=== PATIENT | male | born 1945 | race Caucasian/White ===

== ENCOUNTER 2025-05-03 14:22 | Outpatient (OUT) | payer OTHER, SELFPAY ==
--- NOTE | 2025-05-03 14:30 | XR_ITS ---
The [address] [address] Patient Name: MARCIN SCOTT MRN: [id number] date: 1945 Sex: M Assigned Patient [facility] Current Patient Location: [facility] Accession/Order Number: [id number] Exam Date: 05/03/2025 15:15 Report Date: 05/03/2025 18:21 At the request of: ROSA HAWKINS MD Procedure: XR chest 2V PA AND LATERAL CHEST: CLINICAL HISTORY: Preop exam COMPARISON: None FINDINGS: Mildly enlarged cardiomediastinal silhouette with aortic valve calcification. Retrocardiac opacity possibly within left lower lobe noted possible atelectasis and or scarring.. No effusion or pneumothorax. XR/XR chest 2V IMPRESSION: NO ACUTE CARDIOPULMONARY ABNORMALITY. CARDIOMEGALY. SUSPECT RETROCARDIAC OPACITY, POSSIBLY RELATED TO LEFT LOWER LOBE AIRSPACE DISEASE. CLINICAL CORRELATION WITH SYMPTOMATOLOGY RECOMMENDED. CORRELATION WITH ANY PRIOR IMAGING MAY BENEFICIAL. Impression dictated by: Sea Doherty M.D. 05/03/2025 6:21 PM Dictation Location: [place] [address] Electronically authenticated by: [id number] Y Date: 05/03/2025 18:21
--- NOTE | 2025-05-03 14:30 | ECG_ITS ---
The [facility] Test Date: 2025-05-03 Pat Name: MARCIN SCOTT Department: Room: - Gender: Male Fiber Optic Splicer: : 1945 Requested By: Order Number: [id number] Reading MD: BETZY RICHEY M.D. Measurements Intervals [place] Rate: 65 P: 51 KS: 175 QRS: 24 QRSD: 107 T: 75 QT: 393 QTc: 411 Interpretive Statements SINUS RHYTHM Nonspecific ST-T wave changes Abnormal ECG Compared to ECG 01/24/2021 21:04:[address]-T wave changes are now present Electronically Signed On 05-03-2025 18:06:36 EDT by BETZY RICHEY M.D.
--- OUTSIDE RECORDS SUMMARY | 2025-05-03 15:01 | XMS_ITS | Clinical Summary ---
Author Organization [facility] Address [address] [place] [address] Care Team Providers Care Floor Renovator Name Role Phone Unavailable Primary Care Provider Unavailabl e Social History Tobacco UseTypesPacks/DayYears UsedDateSmoking Tobacco: Never AssessedSex and Gender InformationValueDate RecordedSex Assigned at BirthNot on fileLegal Sex Male09/19/2022 6:51 PM EDTGender IdentityNot on fileSexual OrientationNot on file Last Filed Vital Signs Vital SignReadingTime TakenCommentsBlood Pressure--Pulse--Temperature-- Respiratory Rate--Oxygen Saturation--Inhaled Oxygen Concentration--Oyddaa42.1 kg (159 lb)06/23/2021 12:00 PM UEJMlbfcv098.2 cm (5' 7 )06/23/2021 12:00 PM ESTBody Mass Index24.9108/24/2020 12:00 PM EST Plan of Treatment Not on file
--- OUTSIDE RECORDS SUMMARY | 2025-05-03 15:01 | XMS_ITS | Clinical Summary ---
Author Organization [employer] [facility] Address [facility] [address] [place] [address] Care Team Providers Care Plaster Foreman Name Role Phone Unavailable Primary Care Provider Unavailabl e Social History Tobacco UseTypesPacks/DayYears UsedDateSmoking Tobacco: Never AssessedSex and Gender InformationValueDate RecordedSex Assigned at BirthNot on fileLegal Sex Male11/16/2021 8:46 AM EDTGender IdentityNot on fileSexual OrientationNot on file Plan of Treatment Health MaintenanceDue DateLast DoneCommentsDepression Frquabhhq35/05/1957Tobacco Jwbdihdgw43/05/1957DTaP,Tdap and Td Vaccines (1 - Tdap)12/11/1963Zoster (Shingles) Vaccine (1 of 2)1994Fall Risk Mobytqmgv68/05/2010Influenza Xhnseqm2803/08/2025 Medical Devices Not on file Insurance
--- OUTSIDE RECORDS SUMMARY | 2025-05-03 15:01 | XMS_ITS | Clinical Summary ---
Author Organization [facility] Address [address] [place] [address] Care Team Providers Care Trial Paralegal Name Role Phone Oliva Sotomayor DO Primary Care Provider [phone] Allergies No known active allergies Medications MedicationSigDispense QuantityRefillsLast FilledStart DateEnd DateStatus acetaminophen (TYLENOL) 325 mg tablet Take 650 mg by mouth every 6 hours as needed.Active bismuth subsalicylate (PEPTO-BISMOL ORAL) Take by mouth.Active aspirin/sod bicarb/citric acid (EDWIN-SELTZER ORAL) Take by mouth.Active Active Problems No known active problems Social History Tobacco UseTypesPacks/DayYears UsedDateSmoking Tobacco: Some DaysSmokeless Tobacco: Never Tobacco Cessation:Ready to Q uit: No Alcohol UseStandard Drinks/WeekCommentsNot Currently0 (1 standard drink = 0.6 oz pure alcohol)Area Deprivation IndexAnswerDate RecordedNational Score (1-100), lower number is lower ryqf396808/06/2022State Score (1-10), lower number is lower riskNot on file3Data from: https://www.neighborhoodatlas.medicine.[facility].edu/. Last address used for [address] Spaine08/06/2023Sex and Gender InformationValueDate RecordedSex Assigned at BirthNot on fileLegal KhrUznc7803/08/2020 8:22 AM EDT Gender IdentityNot on fileSexual OrientationNot on file Last Filed Vital Signs Vital SignReadingTime TakenCommentsBlood Ddvhhnqu092/8710 11:30 AM EDT Lhnmk9663/02/2020 11:00 AM YRRUxyjqcpnrnu31.4 ??C (97.5 ??F)04/14/2020 10:54 AM EDTRespiratory Kypu5600 11:00 AM EDTOxygen Cebskdwrpn35%04/14/2020 11:30 AM EDTInhaled Oxygen Concentration--Dteckj20.2 kg (168 lb)03/23/2020 11:43 AM REVWqomea338.2 cm (5' 7 )03/23/2020 11:43 AM EDTBody Mass Index26.31003/23/2020 11:43 AM EDT Plan of Treatment Health MaintenanceDue DateLast DoneCommentsAnxiety Qwcfktauf92/05/1963Depression Ulcwfiwah49/05/1963DTaP,Tdap,Td Vaccine (1 - Tdap)12/11/1963Diabetes Screening 1989Pneumococcal Vaccine: 50+ (1 of 1 - PCV)1994Shingrix Vaccine (1 of 2)1994RSV Vaccine (1 - 1-dose 75+ series)12/11/2019Advance Directive Tayjgjieuw56/01/2025ovid-19 Vaccine (1 - 2024- season)2025Influenza Vaccine (#1)2025 Medical Devices ImplantedTypeAreaManufacturerDevice IdentifierShelf Expiration DateModel / Serial / LotDextile Right Anatomical Mesh Large 10cm X 15cm Implanted:Qty[facility]: InguinalMEDTRONIC [id number] / / [id number] [address] Care Teams Team MemberRelationshipSpecialtyStart DateEnd Date Oliva Sotomayor DO [address] [place] [address] PCP - GeneralFamily Medicine04/01/20
--- NOTE | 2025-05-03 15:11 | PM.PRESUREVA ---
History of Present Illness History of Present Illness Chief complaint: prostate Cancer Narrative: Patient presents for presurgical testing accompanied by his spouse. Please see HPI from Dr. Chang's office dated April 19, 2025. Review of Systems ROS Narrative Please see ROS from Dr. Chang office dated April 19, 2025. 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) Depression ?F32.A - Depression, unspecified (ICD-10) Tinnitus ?H93.19 - Tinnitus, unspecified ear (ICD-10) Carotid artery stenosis without cerebral infarction ?I65.29 - Occlusion and stenosis of unspecified carotid artery (ICD-10) Degenerative lumbar spinal stenosis ?M48.061 - Spinal stenosis, lumbar region without neurogenic claudication (ICD-10) Hearing loss ?H91.90 - Unspecified hearing loss, unspecified ear (ICD-10) 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20 - Elevated prostate specific antigen [PSA] (ICD-10) Prostate cancer ?C61 - Malignant neoplasm of prostate (ICD-10) Surgical History (Updated 05/03/25 @ 14:49 by Zora Fritz NP) History of tonsillectomy ?Z90.89 - Acquired absence of other organs (ICD-10) History of hernia repair ?Z98.890 - Other specified postprocedural states (ICD-10) ?Z87.19 - Personal history of other diseases of the digestive system (ICD-10) History of hernia repair ?Z98.890 - Other specified postprocedural states (ICD-10) ?Z87.19 - Personal history of other diseases of the digestive system (ICD-10) History of lumbosacral spine surgery ?Z98.890 - Other specified postprocedural states (ICD-10) S/P AAA repair ?Z98.890 - Other specified postprocedural states (ICD-10) ?Z86.79 - Personal history of other diseases of the circulatory system (ICD-10) Family History (Updated 05/03/25 @ 14:49 by Zora Fritz NP) Other Agent orange exposure Family history of diabetes mellitus Family history of stroke Social History (Updated 05/03/25 @ 14:43 by Zora Fritz NP) Within the past year, how often did you have a drink containing alcohol: never Score interpretation: A score less than 4 is consistent with normal alcohol consumption. Smoking status: Current every day smoker What tobacco products do you use: cigarettes Cigarettes per day: 5 Years smoked: 20 Smoking pack-years: 5.00 Do you use any of these nicotine containing products: vaping products Non-prescribed substance use: cannabis (any form) Highest level of school completed/degree received: high school graduate Meds Home Medications and Allergies Home Medications ?Medication ?Instructions ?Recorded ?Confirmed ?Type atorvastatin 40 mg tablet 40 mg PO DAILY 05/03/25 05/03/25 History levothyroxine 75 mcg capsule 75 mcg PO DAILY 05/03/25 05/03/25 History lisinopril 5 mg tablet 5 mg PO DAILY 05/03/25 05/03/25 History multivitamin (Daily Multi-Vitamin 1 tab PO DAILY 05/03/25 05/03/25 History tablet) omeprazole 20 mg capsule,delayed 20 mg PO DAILY 05/03/25 05/03/25 History release Allergies Allergy/AdvReac Type Severity Reaction Status Date / Time No Known Drug Allergies Allergy Verified 05/03/25 14:34 Exam Narrative Exam Narrative: Constitutional: Awake, alert, comfortable, well-appearing, nontoxic, interactive, vital signs as charted Head: Normocephalic, atraumatic Neck: Supple, normal appearance, normal range of motion, no meningeal signs, no lymphadenopathy Respiratory: No respiratory distress, breath sounds clear Cardiovascular: Regular rate and rhythm, strong and regular heart tones Abdomen: Nontender, normal bowel sounds, soft, no CVA tenderness Musculoskeletal: Normal gait, no swelling or edema Skin: No rashes or induration, no lesions, only visible skin inspected Neuro: No neurological deficits, normal sensation Psychiatric: Oriented ?3, normal affect Assessment and Plan Assessment and Plan (1) Prostate cancer: (2) Elevated PSA: Plan TRUS/prostate biopsy scheduled with Dr. Chang May 13, 2025.
[2025-05-03 15:20] LABS: Hematocrit 44.8 % (42.0-54.0); Hemoglobin 15.2 g/dL (14.0-18.0); Immature Granulocytes Abs Auto 0.01 10^3/uL (0.00-0.03); Immature Granulocytes Pct Auto 0.1 % (0.0-0.5); Lymphocytes Absolute Auto 2.0 10^3/uL (1.2-3.8); Mean Corpuscular HGB Conc 33.9 g/dL (29.9-35.2); Mean Corpuscular Hemoglobin 32.3 pg (25.9-34.0); Mean Corpuscular Volume 95.3 fL (80.0-94.0); Platelet Count 189 10^3/uL (150-450); Red Blood Count 4.70 10^6/uL (4.70-6.10); White Blood Count 7.4 10^3/uL (4.0-11.0)
[2025-05-03 15:28] LABS: Anion Gap 12.2; Blood Urea Nitrogen 20.0 mg/dL (7.0-18.0); Calcium 8.8 mg/dL (8.5-10.1); Carbon Dioxide 27.2 mmol/L (21.0-32.0); Chloride 102 mmol/L (98-107); Estimated GFR (African America >60 (>=60 mL/min/1.73m^2); Estimated GFR (Non-African Ame >60 (>=60 mL/min/1.73m^2); Glucose 107 mg/dL (74-106); Potassium 4.4 mmol/L (3.5-5.1); Sodium 137 mmol/L (136-145)
[2025-05-03 15:39] LABS: Partial Thromboplastin Time 26.7 sec (22.3-36.2)
[2025-05-03 15:47] LABS: INR 1.02; Prothrombin Time 10.8 sec (9.0-11.6)
== END 2025-05-03 14:23 | disposition home or self-care (01) ==
LOC: PST 14:27
PROVIDERS: PCP Family Medicine; Visit Provider Urology
DX: Z01.810 Encounter for preprocedural cardiovascular examination (principal); Z01.812 Encounter for preprocedural laboratory examination; Z01.818 Encounter for other preprocedural examination; C61 Malignant neoplasm of prostate; I51.7 Cardiomegaly
CPT/HCPCS: 71046; 80048; 85025; 85610; 85730; 93005; G0463

== ENCOUNTER 2025-05-13 06:34 | Day surgery (SDC) | payer OTHER, SELFPAY ==
--- OUTSIDE RECORDS SUMMARY | 2019-01-09 03:33 | XMS_ITS | Continuity of Care Document ---
Author Organization [facility] Address [address] [place] [address] Phone Care Team Providers Care Advisor To Command In Combat Name Role Phone Unavailable Unavailable Unavailable Medications Medication Instructions Dosage Effective Dates (start - stop) Status Comments ProAir HFA 90 mcg/actuation aerosol inhaler inhale 2 puff by inhalation route every 4 - 6 hours as needed as needed - Active may subsitute ventolin HFA IF NOT COVERED BY INSURANCE 90MCG/ACTUATI ON benzonatate 100 mg capsule take 2 capsule by oral route 3 times every day as needed for cough 200 MG - Active Space Chamber Plus se as directed - Active promethazine 6.25 mg-codeine 10 mg/5 mL syrup take 5 milliliter by oral route every 6 hours as needed, not to exceed 30 mL in 24 hours 5.00 milliliter - Active ASPIRIN (unknown strength) Not Available - Active Tirosint 75 mcg capsule - Active lisinopril 20 mg tablet - Active atorvastatin 40 mg tablet - Active azithromycin 250 mg tablet take 2 tablet by oral route every day for 1 day then 1 tablet (250 mg) by oral route once daily for 4 days 500 MG - No Longer Active Procedures Procedure Date Rad Exam Chest 2 views Aerosol SVN -nonpress. Inhalation Tx Jan Offic/outpt E&m New Mod Sever 9 Services provided in an urgent care cent er Advance Directives Directive Yes / No Effective Date File Name No Information Encounters Encounter Description Practice Location Reason(s) For Visit Diagnoses Date Provider Providers Copied on Encounter [facility], [address], [place], [place], [id number] , tel: [phone] Critical access hospital No Information 9 No Information Offic/outpt E&m New Mod Sever [facility], [address], [place], [place], [id number] , tel: [phone] Critical access hospital cough (chief complaint) Decreased breath soundsCough in adult patientCough in adult patientBronchitis 9 [place] [employer]. [address], [place], [address], [place]. tel:[phone] Family History Family Member Type Diagnosis Age At Onset No Information Payers Payer name Insurance type Covered republican ID Authorharjindera saw(s) S [facility] VAPC3 [facility] [id number] Social History Type Description Quantity Date Captured Comments Sex Male Smoking Status No Information Chief Complaint And Reason For Visit No Information Reason For Referral Reason For Referral No Information Plan Of Treatment Date Type Action Status Referral Ordered: Rad Exam Chest 2 views N/A chest [id number] EducationLearning About COPDcompleted History Of Present Illness Encounter Date Complaint History Of Prese nt Illness No Information Functional Status Date Functional Assessmen t No Information Instructions Date Instruction Additional Infor mation No Information Assessments Type Assessment Date No Information Patient Care Teams Name Effective Dates (start - stop) Status Members No Information
[2025-05-03 15:01] VITALS: BP 126/88; PULSE 71; TEMP 36.2; O2SAT 98; BMI 27.8
--- OUTSIDE RECORDS SUMMARY | 2025-05-13 06:39 | XMS_ITS | Clinical Summary ---
Author Organization [facility] Address [address] [place] [address] Care Team Providers Care Car Hiker Name Role Phone Oliva Sotomayor DO Primary Care Provider [phone] Allergies No known active allergies Medications MedicationSigDispense [...] RecordedNational Score (1-100), lower number is lower chhj016508/06/2022State Score (1-10), lower number is lower riskNot on file3Data from: https://www.neighborhoodatlas.medicine.[facility].edu/. Last address used for [address] Spaine08/06/[birth year]22Sex and Gender InformationValueDate RecordedSex Assigned at BirthNot on fileLegal WnpIcmt0103/08/2020 8:22 AM EDT Gender IdentityNot on fileSexual OrientationNot on file Last Filed Vital Signs Vital SignReadingTime TakenCommentsBlood Kfmkptqn166/8710 11:30 AM EDT Yetbk0728/02/2020 11:00 AM NCJJdpdyozjmic18.4 ??C (97.5 ??F)04/14/2020 10:54 AM EDTRespiratory Rcek2918 11:00 AM EDTOxygen Rcmdwdbjte08%04/14/2020 11:30 AM EDTInhaled Oxygen Concentration--Wgyvyk26.2 kg (168 lb)03/23/2020 11:43 AM YLXPeomba860.2 cm (5' 7 )03/23/2020 11:43 AM EDTBody Mass Index26.31003/23/2020 11:43 AM EDT Plan of Treatment Health MaintenanceDue DateLast DoneCommentsAnxiety Fnsgywalp00/05/1963Depression Mwqqyyjum97/05/1963DTaP,Tdap,Td Vaccine (1 - Tdap)12/11/1963Diabetes Screening 1989Pneumococcal Vaccine: 50+ (1 of 1 - PCV)1994Shingrix Vaccine (1 of 2)1994RSV Vaccine (1 - 1-dose 75+ series)12/11/2019Advance Directive Srpdgrlyjy33/01/2025ovid-19 Vaccine (1 - 2024- season)2025Influenza Vaccine (#1)2025 Medical Devices ImplantedTypeAreaManufacturerDevice IdentifierShelf Expiration DateModel / Serial / LotDextile Right Anatomical Mesh Large 10cm X 15cm Implanted:Q[facility]: InguinalMEDTRONIC [id number] / / [id number] [address] Care Teams Team MemberRelationshipSpecialtyStart DateEnd Date Oliva Sotomayor DO [address] [place] [address] PCP - GeneralFamily Medicine04/01/20
--- OUTSIDE RECORDS SUMMARY | 2025-05-13 06:39 | XMS_ITS | Clinical Summary ---
Author Organization [facility] Address [address] [place] [address] Care Team Providers Care Physician Assistant Certified Name Role Phone Unavailable Primary Care Provider Unavailabl e Social History Tobacco UseTypesPacks/DayYears UsedDateSmoking Tobacco: Never AssessedSex and Gender InformationValueDate RecordedSex Assigned at BirthNot on fileLegal Sex Male09/19/2022 6:51 PM EDTGender IdentityNot on fileSexual OrientationNot on file Last Filed Vital Signs Vital SignReadingTime TakenCommentsBlood Pressure--Pulse--Temperature-- Respiratory Rate--Oxygen Saturation--Inhaled Oxygen Concentration--Vxztpk93.1 kg (159 lb)06/23/2021 12:00 PM WJXNwsmjp526.2 cm (5' 7 )06/23/2021 12:00 PM ESTBody Mass Index24.9108/24/2020 12:00 PM EST Plan of Treatment Not on file
--- OUTSIDE RECORDS SUMMARY | 2025-05-13 06:39 | XMS_ITS | Clinical Summary ---
Author Organization [employer] [facility] Address [facility] [address] [place] [address] Care Team Providers Care Field Service Engineer Name Role Phone Unavailable Primary Care Provider Unavailabl e Social History Tobacco UseTypesPacks/DayYears UsedDateSmoking Tobacco: Never AssessedSex and Gender InformationValueDate RecordedSex Assigned at BirthNot on fileLegal Sex Male11/16/2021 8:46 AM EDTGender IdentityNot on fileSexual OrientationNot on file Plan of Treatment Health MaintenanceDue DateLast DoneCommentsDepression Kckexgntn97/05/1957Tobacco Jpsvoxoqg76/05/1957DTaP,Tdap and Td Vaccines (1 - Tdap)12/11/1963Zoster (Shingles) Vaccine (1 of 2)1994Fall Risk Gehwupeic21/05/2010RSV ( or age 60+ yrs) (1 - 1-dose 75+ series)12/11/2019Influenza Iqtnvat1403/08/2025 Medical Devices Not on file Insurance
--- NOTE | 2025-05-13 06:50 | US_ITS ---
[address] [address] Patient Name: MARCIN SCOTT MRN: [id number] date: 1945 Sex: M Assigned Patient Location: [facility] Current Patient Location: Accession/Order Number: [id number] Exam Date: 05/13/2025 08:00 Report Date: 05/14/2025 22:30 At the request of: ROSA HAWKINS MD Procedure: US prostate Ultrasound of the prostate was performed for biopsy. HISTORY: PSA 6. The prostate volume 50 cc. US/US prostate IMPRESSION: Prostatomegaly. Impression dictated by: David Ochoa M.D. 05/14/2025 10:30 PM Dictation Location: [place] [address] Electronically authenticated by: [id number] Y Date: 05/14/2025 22:30
[2025-05-13 06:56] VITALS: BP 125/87; PULSE 67; TEMP 36.1; O2SAT 97; BMI 28.0
[2025-05-13] MEDS: GENTAMICIN SULFATE 120 MG in 0.9 % SODIUM CHLORIDE 100 ML 206 MG IV (07:27)
[2025-05-13] MEDS: CEFAZOLIN SODIUM 1 GM/50 ML D5W PREMIX IV (08:02)
[2025-05-13] MEDS: LIDOCAINE 2% JELLY 20 ML UR (08:17)
--- NOTE | 2025-05-13 08:31 | PM.URSON ---
Urology Surgery Operative Note Operative Note Procedure Date: 05/13/25 Time Out Performed: yes Pre-op Diagnosis: Prostate cancer; active surveillance. Rising PSA Post-op Diagnosis: same as pre-op Procedures performed: 1. Transrectal ultrasound of the prostate. 2. Prostate needle biopsies. Anesthesia: MAC Primary Surgeon: Reece Chang Complications: None Estimated blood loss (mL): 10 Findings: Peripheral zone calcifications. Specimens: Prostate needle biopsies; 8 from the left and 8 from the right. Indications for Procedures: This gentleman has a history of prostate cancer Tanner score 3+3 equal 6 in 4 out of 12 cores diagnosed in [place] in 2019. His PSA has been steadily rising since then without signs of active infection. It is now in the 12-13 range. He did have a PSMA PET scan and this did not show any active lymph nodes or prostatic tissue. He now presents for transrectal ultrasound and biopsies of the prostate. He has signed an informed consent after risks were explained. Some of these risks include bleeding, infection, urosepsis and anesthesia to name a few. Detailed description of Procedure: The patient was kept on his [place] bed and brought into the endoscopy suite. He was placed in the left lateral decubitus position. Timeout was done by all parties in the room. SCDs were on his lower extremities and they were turned on and functioning during the entire case. MAC anesthesia was administered. I then started by using Betadine soaked sponge sticks and swabbing his rectum numerous times. I then placed 2% lidocaine gel per rectum. The ultrasound probe was passed per rectum and the prostate was scanned in the transverse and longitudinal views. The volume was calculated to be 50 g. There were some peripheral calcifications noted. No discrete hypoechoic areas were seen. I started at the left base and began taking biopsies going towards the apex. I divided it up into 4 levels and from each level took 2 biopsies. I then did a similar maneuver on the right side. At the end of the procedure we had 16 satisfactory cores. The probe was removed. He was then transferred to PACU in stable condition.
[2025-05-13 08:34] VITALS: BP 128/78; PULSE 76; TEMP 36.5; O2SAT 95
[2025-05-13 08:50] VITALS: BP 122/66; PULSE 68; O2SAT 94
[2025-05-13 09:30] VITALS: BP 132/88; PULSE 76; O2SAT 96
== END 2025-05-13 09:30 | disposition home or self-care (01) ==
LOC: SURGOUT 06:35
PROVIDERS: PCP Family Medicine; Visit Provider Urology
PROC: (CPT 55700; principal; 2025-05-13 08:00)
DX: C61 Malignant neoplasm of prostate (principal); R97.20 Elevated prostate specific antigen [PSA]; E78.5 Hyperlipidemia, unspecified; K21.9 Gastro-esophageal reflux disease without esophagitis; F17.210 Nicotine dependence, cigarettes, uncomplicated; I10 Essential (primary) hypertension; Z86.11 Personal history of tuberculosis; I73.9 Peripheral vascular disease, unspecified; E03.9 Hypothyroidism, unspecified
CPT/HCPCS: 55700; 36415; 76872; J0690; J1580; J2405; J2704; J3010

== ENCOUNTER 2025-05-25 09:11 | Outpatient (OUT) | payer OTHER, SELFPAY ==
--- NOTE | 2025-05-25 09:14 | CT_ITS ---
The [address] [address] Patient Name: MARCIN SCOTT MRN: [id number] date: 1945 Sex: M Assigned Patient Location: CT Current Patient Location: CT Accession/Order Number: [id number] Exam Date: 05/25/2025 09:29 Report Date: 05/25/2025 10:14 At the request of: ROSA HAWKINS MD Procedure: CT chest w con CT CHEST WITH INTRAVENOUS CONTRAST: CLINICAL HISTORY: Abnormal Chest X-ray with retrocardiac opacity. History Of Tuberculosis COMPARISON: Chest x-ray 05/03/2025 TECHNIQUE: Spiral images were obtained through the chest following intravenous administration of 0 mL of contrast. Images were reviewed using both narrow and wide window settings. This CT exam was performed using one or more following dose reduction techniques: Automated exposure control, adjustment of the mA and/or kV according to patient size, or use of iterative reconstruction technique. FINDINGS: The heart is top normal in size. There is no pericardial effusion. Mild coronary disease is seen. No aortic aneurysm or dissection is identified. Mild plaque is noted at the aortic arch and descending aorta. There is no mediastinal or hilar lymphadenopathy. A moderate sized hiatal hernia is visualized. The bony structures are intact. Mild degenerative changes are present at the spine. There is some respiratory motion. There is slight elevation of the left hemidiaphragm. Mild atelectasis and/or scarring is present, greatest at the lower lobes. There is no additional consolidation, pleural effusion or discrete soft tissue nodules. No pneumothorax is seen. Limited cuts through the upper abdomen show no contributory abnormality. CT/CT chest w con IMPRESSION: ATELECTASIS AND/OR SCARRING. HIATAL HERNIA. NO OTHER ACUTE FINDINGS. Impression dictated by: Ayaka Smith M.D. 05/25/2025 10:14 AM Dictation Location: [place] [address] Electronically authenticated by: [id number] Y Date: 05/25/2025 10:14
== END 2025-05-25 09:12 | disposition home or self-care (01) ==
LOC: CT 09:11
PROVIDERS: PCP Family Medicine; Visit Provider Urology
DX: R93.89 Abnormal findings on diagnostic imaging of other specified body structures (principal); Z86.11 Personal history of tuberculosis; K44.9 Diaphragmatic hernia without obstruction or gangrene
CPT/HCPCS: 71260; Q9967